=== PATIENT | female | born 1990 | race Caucasian/White ===

== ENCOUNTER 2018-02-13 03:31 | Emergency (ER) | payer MEDICAID ==
[~2018-02-13] VITALS: Ht 160 cm; Wt 64.9 kg
[2018-02-13 02:54] VITALS: BP 114/65
[~2018-02-13 03:31] MED LIST: IBUP-2218 PO
--- NOTE | 2018-02-13 03:31 | NUR ---
PATIENT MAIK CARDOZO FROM OB TO CHAIR Omar
--- NOTE | 2018-02-13 03:31 | NUR ---
[facility] [employer] FOR [employer]. PT WAS SENT TO OB FOR MEDICAL CLEARANCE D/T 25 GESTATION, HIGHRISK . VSS. SETTING IN CHAIR E WITH VSS. ER AWARE. CONTINUE TO MONITOR.
[2018-02-13 03:36] VITALS: BP 135/86
[2018-02-13 04:11] VITALS: BP 135/86
--- NOTE | 2018-02-13 04:13 | NUR ---
Patient discharged with v/s stable. Written and verbal after care instructions given and explained. Patient verbalized understanding. Police with in custody. All questions addressed prior to discharge. Advised to follow up with PMD.
== END 2018-02-13 04:13 ==
LOC: EDSTATUS 03:31 → MED 03:31
DX: Z02.89 Encounter for other administrative examinations (principal)
CPT/HCPCS: 99283